=== PATIENT | male | born 1945 | race Caucasian/White ===

== ENCOUNTER 2019-04-28 10:24 | Day surgery (SDC) | payer MEDICARE ==
[2019-04-24 13:11] VITALS: BMI 29.7
[~2019-04-28 10:24] MED LIST: LACTATED RINGERS 1,000 ML IV SCH
[2019-04-28 11:01] VITALS: TEMP 97.5
[2019-04-28] MEDS ORDERED: LIDOCAINE 1% 20 ML VIAL (10MG/ML) FOR IV START INTRADERMA ONE (11:05)
[2019-04-28] MEDS ORDERED: PROPOFOL 10 MG/ML 20 ML VIAL IV ONE (11:38)
--- NOTE | 2019-04-28 11:40 | P.GSHP ---
History of Present Illness H&P Date: 04/28/19 Chief Complaint: Screening colonoscopy This is a 73-year-old male referred from Dr. Odonnell. Patient is today for screening colonoscopy. Denies a significant GI complaints. Past Medical History Past Medical History: GERD/Reflux Additional Past Medical History / Comment(s): "borderline hypertension", Hx colon polyps. History of Any Multi-Drug Resistant Organisms: None Reported Past Surgical History: Cholecystectomy, Orthopedic Surgery, Tonsillectomy Additional Past Surgical History / Comment(s): HEEL SPURS, collar bone fx Past Anesthesia/Blood Transfusion Reactions: No Reported Reaction Past Psychological History: No Psychological Hx Reported Smoking Status: Never smoker Past Alcohol Use History: Occasional Past Drug Use History: None Reported - Past Family History Father Family Medical History: Cancer Additional Family Medical History / Comment(s): stomach cancer Mother Family Medical History: Cancer Additional Family Medical History / Comment(s): States, "Colon Cancer." Medications and Allergies Home Medications Medication Instructions Recorded Confirmed Type Aspirin 81 mg PO Q48H 02/15/14 04/28/19 History Allergies Allergy/AdvReac Type Severity Reaction Status Date / Time Tetanus Vaccines and Toxoid Allergy Unknown Verified 04/24/19 12:57 [Tetanus Vaccines & Toxoid] Childhood Surgical - Exam Vital Signs Resp 16 04/28/19 10:55 - General well developed, well nourished, no distress - Eyes PERRL - ENT normal pinna - Neck no masses - Respiratory normal expansion - Cardiovascular Rhythm: regular - Abdomen Abdomen: soft, non tender Assessment and Plan Assessment: We'll perform screening colonoscopy
--- NOTE | 2019-04-28 11:57 | P.OP ---
Date of Procedure: 04/28/19 Preoperative Diagnosis: Screening colonoscopy Postoperative Diagnosis: Diverticulosis Procedure(s) Performed: Colonoscopy Anesthesia: MAC Surgeon: Galen Moulton Pathology: none sent Condition: stable Disposition: PACU Description of Procedure: The patient's placed on the endoscopy table in the lateral position. He received IV sedation. Digital rectal exam was performed which revealed no abnormalities. Flexible colonoscope was then placed patient anus passed rotator entire colon the ileocecal valve sutures. The cecum, ascending transverse colon appeared normal. In the descending; there is moderate diverticular changes. Scope was then brought back the rectum and this appeared normal. Scope was withdrawn for patient.
[2019-04-28 12:35] VITALS: BP 136/86; PULSE 65; RESP 18
== END 2019-04-28 12:35 | disposition home or self-care (01) ==
LOC: ORWHC2ENDO 10:24
PROVIDERS: ATTEND Surgery
DX: Z12.11 Encounter for screening for malignant neoplasm of colon (principal); Z86.010 Personal history of colon polyps; K57.30 Diverticulosis of large intestine without perforation or abscess without bleeding; K21.9 Gastro-esophageal reflux disease without esophagitis; Z90.49 Acquired absence of other specified parts of digestive tract; Z88.7 Allergy status to serum and vaccine; Z80.0 Family history of malignant neoplasm of digestive organs; Z87.81 Personal history of (healed) traumatic fracture; Z79.82 Long term (current) use of aspirin
CPT/HCPCS: J2704; G0105